=== PATIENT | female | born 1970 | race Caucasian/White ===

== ENCOUNTER → 2017-08-07 | Outpatient (CLI) | payer BC ==
[~2017-08-07] MED LIST: ABIL10TA8 PO; AMBI10TA PO; ARTHTAB5 PO; ATOR20TA15 PO; CHOL1CHW6 CHEW; CITRTAB7 PO; CLON1TAB PO; FIBE625T10 PO; FLUT50SP EACH NARE; GABA100C4 PO; GABA600T PO; LINA145C PO; LISD60 PO; MULTTAB67 PO; VIIB40TA PO
[2017-08-07 13:15] LABS: AUTOMATED NEUTROPHIL # 2.4 TH/MM3 (1.8-7.7); BASOPHIL % 0.8 % (0.0-2.0); EOSINOPHIL # 0.2 TH/MM3 (0-0.4); EOSINOPHIL % 4.5 % (0.0-4.0); HEMATOCRIT 40.5 % (35.0-46.0); HEMOGLOBIN 13.4 GM/DL (11.6-15.3); LYMPH % 29.3 % (9.0-44.0); LYMPHOCYTE # 1.3 TH/MM3 (1.0-4.8); MEAN CELL VOLUME 89.6 FL (80.0-100.0); MEAN CORPUSCULAR HEMOGLOBIN 29.7 PG (27.0-34.0); MEAN CORPUSCULAR HGB CONC 33.2 % (32.0-36.0); MEAN PLATELET VOLUME 8.2 FL (7.0-11.0); MONO % 12.6 % (0.0-8.0); MONOCYTE # 0.6 TH/MM3 (0-0.9); NEUT % 52.8 % (16.0-70.0); PLATELET COUNT 214 TH/MM3 (150-450); RED BLOOD COUNT 4.52 MIL/MM3 (4.00-5.30); RED CELL DISTRIBUTION WIDTH 14.6 % (11.6-17.2); WHITE BLOOD COUNT 4.6 TH/MM3 (4.0-11.0)
[2017-08-07 13:22] LABS: PROTHROMBIN TIME - PATIENT 10.1 SEC (9.8-11.6)
== END ==
LOC: CLAB 12:48
PROVIDERS: ATTEND Internal Medicine Gastroenterology
DX: R79.89 Other specified abnormal findings of blood chemistry (principal)
CPT/HCPCS: 36415; 82784; 83516; 85025; 85610; 85730

== ENCOUNTER 2017-08-08 06:40 | Day surgery (SDC) | payer BC ==
[~2017-08-08] VITALS: Ht 170.2 cm; Wt 80.0 kg
[2017-08-08] VITALS (8 sets, daily range): BP systolic 103–131; BP diastolic 55–85; PULSE 87–99; RESP 18–20; TEMP 97.5–97.9; O2SAT 93–96
[~2017-08-08 06:40] MED LIST changes: -ARTHTAB5 PO; -CHOL1CHW6 CHEW; -CITRTAB7 PO; -FIBE625T10 PO; -FLUT50SP EACH NARE; -GABA100C4 PO; -LINA145C PO; -MULTTAB67 PO
[2017-08-08] MEDS ORDERED: SODIUM CHLOR 0.9% 1000 ML IV SCH (07:30)
[2017-08-08] MEDS ORDERED: LIDOCAINE HCL 1% 20 ML VIAL ONE (07:33)
[2017-08-08] MEDS ORDERED: SODIUM BICARBONATE 8.4% INJ 50 ML ONE (07:33)
[2017-08-08] MEDS ORDERED: MULTTAB67 PO (07:36)
[2017-08-08] MEDS ORDERED: CHOL1CHW6 CHEW (07:36)
[2017-08-08] MEDS ORDERED: ARTHTAB5 PO (07:36)
[2017-08-08] MEDS ORDERED: LINA145C PO (07:36)
[2017-08-08] MEDS ORDERED: CITRTAB7 PO (07:36)
[2017-08-08] MEDS ORDERED: FIBE625T10 PO (07:36)
[2017-08-08] MEDS ORDERED: FLUT50SP EACH NARE (07:36)
[2017-08-08] MEDS ORDERED: GABA100C4 PO (07:36)
[2017-08-08] MEDS ORDERED: MIDAZOLAM HCL 2 MG/2 ML VIAL ONE (08:06)
--- NOTE | 2017-08-08 08:55 | PD.RAD ---
Post CT Procedure Prog Note Pre Procedure Diagnosis: (1) Abnormal LFTs (liver function tests) Post Procedure Diagnosis: (1) Abnormal LFTs (liver function tests) Procedure Date: Aug 08, 2017 Supervising Radiologist: Paul King Estimated blood loss: none Anesthesia: Local, Conscious Sedation Plan of Activity Patient to Unit: ROPU Patient Condition: Good See PACS Report for procedural detail/treatment Biopsy Imaging Guidance: CT Side: Right Biopsy Procedure: Liver Specimen: Core Biopsy Paul King MD Aug 08, 2017 08:55
[2017-08-08] MEDS ORDERED: HYDROmorphone HCL 2 MG TAB PO PRN (09:00)
[2017-08-08] MEDS ORDERED: PILL SPLITTER OTHER PRN (09:00)
--- NOTE | 2017-08-08 09:47 | RADRPT ---
EXAM DATE/TIME: 08/08/2017 08:24 [place] COMPARISON: No previous studies available for comparison. INDICATIONS : Elevated liver function. SEDATION TIME: 30 minutes BIOPSY SITE: Right MEDICATION(S): 1.) 4 mg midazolam (Versed) IV 2.) 200 mcg fentanyl (Sublimaze) IV DEVICE(S): 1.) 16 gauge Temno core biopsy needle MEDICAL HISTORY : None. SURGICAL HISTORY : None. ENCOUNTER: Initial ACUITY: 1 day PAIN SCORE: 0/10 LOCATION: Right A total of one core specimen(s) were obtained and sent to the laboratory for pathologic evaluation. PROCEDURE: 1. CT guided liver biopsy. 2. Conscious sedation with continuous EKG and oximetry monitoring. 3. EKG and oximetry remained stable throughout the procedure. Prior to the procedure informed consent was obtained. Any appropriate prior imaging studies were rev iewed. Using automated exposure control and adjustment of the mA and/or kV according to patient size, radiat ion dose was kept as low as reasonably achievable to obtain optimal diagnostic quality images. DICOM format image data is available electronically for review and comparison. The site was prepped in a sterile fashion. Full sterile technique was used, including cap, mask, stacie rile gloves and gown and a large sterile sheet. Hand hygiene and 2% chlorhexidine and/or betadine/al cohol prep was utilized per protocol for cutaneous antisepsis. The skin and subcutaneous tissues wer e infiltrated with local anesthetic solution. With CT guidance the previously identified target was localized. Biopsy was performed using the presc ribed needle as above. Adequate hemostasis was obtained with compression at the puncture site. Follow-up CT scan reveals no hemorrhage. The patient tolerated the procedure well and there were no complications. The patient was returned to the Radiology Outpatient Unit in stable condition. CONCLUSION: Uncomplicated CT guided biopsy. Paul King MD on August 08, 2017 at 9:43 Board Certified Radiologist. This report was verified electronically.
[2017-08-08] MEDS ORDERED: ONDANSETRON HCL 4 MG/2 ML VIAL IV PUSH ONE (11:25)
[2017-08-08] MEDS ORDERED: ONDANSETRON HCL 4 MG/2 ML VIAL ONE (11:25)
[2017-08-08] MEDS ORDERED: ACETAMINOPHEN 325 MG TAB PO ONE (11:30)
[2017-08-08] MEDS ORDERED: oxyCODONE/ACETAMINOPHEN 5 MG/325 MG TAB PO ONE (13:15)
== END 2017-08-08 13:55 | disposition home or self-care (01) ==
LOC: HRAD 06:40 → HRIP 06:46 → HRAD 13:55
PROVIDERS: ATTEND Internal Medicine Gastroenterology
DX: K75.9 Inflammatory liver disease, unspecified (principal); R94.5 Abnormal results of liver function studies
CPT/HCPCS: 47000; 77012; 88307; 88313; J2250; J3010; J7030; J2405